=== PATIENT | male | born 1990 | race Caucasian/White ===

== ENCOUNTER 2016-09-01 22:24 | Emergency (ER) | payer SELFPAY ==
[~2016-09-01 22:24] MED LIST: ACYCLOVIR400 M1 PO; BACTRIM DS TAB1 EAC2 PO; BACTRIM DS TABL1 TAB PO; BACTRIM DS1 TAB PO; BACTROBAN22 GM TP; BENADRYL25 M3 PO; HYDROCODON-ACE1 EA16 PO; LEVAQUIN750 MG PO; NORCO 5-325 TA1 EACH PO
== END 2016-09-01 23:44 | disposition left against medical advice (07) ==
LOC: EDMED 22:24
DX: Z53.21 Procedure and treatment not carried out due to patient leaving prior to being seen by health care provider (principal)